=== PATIENT | female | born 1945 | race Caucasian/White ===

== ENCOUNTER 2021-03-04 08:23 | Day surgery (SDC) | payer MEDICARE, OTHER ==
[~2021-03-04] VITALS: Ht 160 cm; Wt 79.5 kg
[2021-03-04 08:42] LABS: BASOPHILS 0 % (0-2); EOSINOPHILS 1.8 % (0-7); HEMATOCRIT 40.5 % (36.0-48.0); HEMOGLOBIN 13.8 g/dL (12-16); IMMATURE GRANULOCYTES 0.2 % (0-5); LYMPHOCYTE ABS# 1.53 10x3/uL (1.18-3.74); LYMPHOCYTES 24.9 % (15-50); MCH 28.8 pg (26.0-34.0); MCHC 34.1 g/dL (31.0-37.0); MCV 84.6 fL (80.0-100.0); MEAN PLATELET VOLUME 10.9 fL (7.4-10.4); MONOCYTES 8.3 % (2-11); NEUTROPHIL ABS# 3.99 10x3/uL (1.56-6.13); NEUTROPHILS 64.8 % (40-80); PLATELET COUNT 198 10x3/uL (130-400); RBC 4.79 10x6/uL (4.00-5.40); RDW 14.1 % (11.5-14.5); WBC 6.2 10x3/uL (4.8-10.8)
[2021-03-04 08:49] LABS: ALBUMIN 3.7 g/dL (3.4-5.0); ANION GAP 15.1 mmol/L (8-16); BILIRUBIN - TOTAL 0.57 mg/dL (0.2-1.3); CALCIUM 9.3 mg/dL (8.5-10.1); CARBON DIOXIDE 25.3 mmol/L (21.0-32.0); CREATININE - SERUM 0.8 mg/dL (0.6-1.3); POTASSIUM - SERUM 3.4 mmol/L (3.5-5.1); PROTEIN - SERUM 6.8 g/dL (6.4-8.2)
[2021-03-04 09:55] VITALS: Ht 160 cm; Wt 79.5 kg
[2021-03-04] MEDS ORDERED: HCTZ25 MG PO (10:05)
[2021-03-04] MEDS ORDERED: GALZIN50 MG (10:06)
[2021-03-04] MEDS ORDERED: OXYBUTYNIN CHLOR5 MG (10:06)
[2021-03-04] MEDS ORDERED: VITAMIN D325 MC1 PO (10:07)
--- NOTE | 2021-03-04 14:53 | NUR ---
PT DC INSTRUCTIONS REVIEWED AT THIS TIME, PT AND FAMILY VEBRALIZE UNDERSTANDING. PT IV REMOVED AT THIS TIME, INTACT, NO REDNESS OR SWELLING NOTED SITE.
--- NOTE | 2021-03-04 15:01 | NUR ---
PT LEAVING OPS AT THIS TIME VIA WC, NAD NOTED AT THIS TIME.
--- NOTE | 2021-03-05 12:19 | OP ---
PATIENT NAME: NANO CALIXTO MEDICAL RECORD: [id number] :45 LOCATION:[facility] ADMISSION DATE: SURGEON: GATITO LYNNE MD DATE OF OPERATION: 03/04/2021 PREOPERATIVE DIAGNOSIS: History of 3.5 cm polyp of the ascending colon. POSTOPERATIVE DIAGNOSES: 1. Recurrent polyp within a tattoo in the ascending colon on a fold and on the back side of the fold. This polyp is now much smaller. It is a 1.4 cm polyp. 2. Mild pandiverticulosis. 3. Two submucosal lipomas. PROCEDURE: 1. Total colonoscopy to cecum. 2. Polypectomy in the ascending colon utilizing the argon plasma construction electrician. The risks, possible complications, alternatives of the procedure were explained to the patient. She elects to proceed. OPERATIVE COURSE: The patient was conveyed to the endoscopy suite electively on 03/04/2021. IV sedation was induced by the anesthesia staff. The patient was placed in the Riggs position. A digital rectal examination was performed. The colonoscope was inserted through the anus. It was easily advanced to the cecum. The prep was adequate. I slowly withdrew the endoscope. I irrigated and aspirated extensively. Pullback was greater than 18-minute pullback. I dragged the folds. A combination of normal imaging and narrow band imaging were utilized. The polyp was easily identifiable. Utilizing a hot biopsy forceps polypectomy technique, I removed the greatest portion of the polyp. Utilizing the argon plasma construction electrician with the right colon setting in the force mode, I was able to ablate the polyp on the backside of the fold. I then continued to withdraw the endoscope. In the rectum, there were some diminutive polyps and these likely are hyperplastic and these were ablated with argon plasma construction electrician. There were about 6 of them. A retroflexed view was obtained in the rectum. I then unretroflexed the scope and removed it under direct vision. I will see the patient in my office in 2 to 3 weeks. If there has been no evidence of dysplasia within the polyp, I would recommend one final colonoscopy in a year and if there has been no recurrence of the polyp, I would return the patient's endoscopic care back over to Dr. Clemens. TRANSINT:[id number] Voice Confirmation ID: [id number] DOCUMENT ID: [id number] GATITO LYNNE MD at 1219 CC: BECCA CLEMENS MD [id number] DICTATION DATE: 03/04/21 1420 MINE ENGINEERING SUPERINTENDENT: 03/04/212028 [facility] 03/04/21 [id number] [place] [address]
--- NOTE | 2021-03-06 16:42 | HP ---
PATIENT: NANO CALIXTO MEDICAL RECORD: [id number] ACCOUNT: [id number] [facility] ADMISSION DATE: 03/04/21 PCP: GATITO LYNNE MD HISTORY AND PHYSICAL EXAMINATION HISTORY: The patient has an ascending colon polyp, which was a 3.5 cm polyp. The patient saw myself and Dr. Limon. She was actually scheduled for a laparoscopic hand-assisted colectomy by Dr. Limon, but the patient elected to try argon plasma coagulation therapy endoscopically first. The risks, possible complications, and alternatives to the procedure were explained to the patient. She elects to proceed. ALLERGIES: No known drug allergies. CURRENT MEDICATIONS: Reviewed. PAST MEDICAL AND SURGICAL HISTORY: Colon polyp, hypertension, overactive bladder. ALLERGIES: No known drug allergies. PHYSICAL EXAMINATION: GENERAL: The patient does not appear acutely ill. She does not appear chronically ill. VITAL SIGNS: Reviewed. EARS: External ears appear normal. EYES: Extraocular movements are intact. NECK: Trachea is midline. CHEST: No intercostal retractions. PULMONARY: Nonlabored. No stridor. IMPRESSION: A 3.5 cm ascending colon polyp. PLAN: Colonoscopy and polypectomy. TRANSINT:[id number] Voice Confirmation ID: [id number] DOCUMENT ID: [id number] GATITO LYNNE MD at 1642 CC: TAMIKO YAN [id number] DICTATION DATE: 03/04/21 1338 CATERER HELPER: 03/04/21 1405 [facility] 03/04/21 [place] [address]
== END 2021-03-04 15:01 | disposition home or self-care (01) ==
LOC: D.OPS 08:23
PROVIDERS: Anesthesiology; ATTEND Surgery
DX: Z86.010 Personal history of colon polyps (principal); K57.30 Diverticulosis of large intestine without perforation or abscess without bleeding; K63.5 Polyp of colon; I10 Essential (primary) hypertension; K64.0 First degree hemorrhoids; N32.81 Overactive bladder